=== PATIENT | female | born 1995 | race American Indian/Alaskan Native ===

== ENCOUNTER 2021-11-27 09:07 | Outpatient (CLI) | payer MEDICAID ==
[2021-11-27] MEDS ORDERED: LACTATED RINGERS 500 ML IV ONE (09:13)
[2021-11-27 09:30] VITALS: BP 130/63
[2021-11-27] MEDS ORDERED: TERBUTALINE 1 MG/1 ML INJ SUB-Q ONE ×2 (09:50→10:31)
[2021-11-27 11:01] LABS: Bilirubin,Urine NEG (Negative); Blood,Urine SM (Negative); Color,Urine Yellow (Yellow); Urobilinogen,Urine < 2.0 mg/dL (<2.0)
[2021-11-27 11:02] LABS: Mucus,Urine 3+ /HPF
[2021-11-27] MEDS ORDERED: ACETAMINOPHEN 500 MG TAB PO ONE (11:56)
[2021-11-27] MEDS ORDERED: PHENAZOPYRIDINE 200 MG TAB PO ONE (11:58)
--- NOTE | 2021-11-27 15:16 | Ultrasound Report ---
ULTRASOUND OBSTETRIC LIMITED INDICATION / CLINICAL INFORMATION: r/o abruption. - Clinical Gestational Age (GA) in weeks, days: 20, 1 TECHNIQUE: Transabdominal. COMPARISON: None available. FINDINGS: HEART RATE (beats per minute): 145 AMNIOTIC FLUID INDEX (cm) = subjectively normal. PRESENTATION: Breech. ADDITIONAL FINDINGS: Placenta is anteriorly located. No evidence of abruption. Cervix 4.4 cm. IMPRESSION: Viable intrauterine without evidence of abruption. Signer Name: Jay Veras MD Signed: 11/27/2021 3:11 PM Workstation Name: [id number]
== END 2021-11-27 15:50 | disposition home or self-care (01) ==
LOC: TRG 09:07 → APU 09:09 → TRG 15:50
PROVIDERS: ATTEND Obstetrics & Gynecology
DX: O26.892 Other specified pregnancy related conditions, second trimester (principal); R10.30 Lower abdominal pain, unspecified; O32.1XX0 Maternal care for breech presentation, not applicable or unspecified; O99.512 Diseases of the respiratory system complicating pregnancy, second trimester; J45.909 Unspecified asthma, uncomplicated; O99.352 Diseases of the nervous system complicating pregnancy, second trimester; G43.909 Migraine, unspecified, not intractable, without status migrainosus; O99.012 Anemia complicating pregnancy, second trimester; D64.9 Anemia, unspecified; Z3A.20 20 weeks gestation of pregnancy
CPT/HCPCS: 76815; 81001; 87086; 96372; J3105; J7120; 96360

== ENCOUNTER 2021-12-27 09:09 | Outpatient (CLI) | payer MEDICAID ==
[2021-12-27 09:38] VITALS: BP 117/59
[2021-12-27] MEDS ORDERED: LACTATED RINGERS 500 ML IV ONE (10:00)
[2021-12-27 10:55] LABS: Mucus,Urine FEW /HPF
[2021-12-27 11:25] LABS: Color,Urine Colorless (Yellow)
== END 2021-12-27 12:08 | disposition home or self-care (01) ==
LOC: TRG 09:09 → APU 09:10 → TRG 12:08
PROVIDERS: ATTEND Obstetrics & Gynecology
DX: O26.892 Other specified pregnancy related conditions, second trimester (principal); R10.9 Unspecified abdominal pain; Z3A.24 24 weeks gestation of pregnancy
CPT/HCPCS: 81001

== ENCOUNTER 2022-01-15 15:23 | Outpatient (CLI) | payer MEDICAID ==
[2022-01-15] MEDS ORDERED: LACTATED RINGERS 1,000 ML ONE (16:37)
[2022-01-15] MEDS: LACTATED RINGERS 1,000 ML IV SCH ×2 (16:45→20:46)
--- NOTE | 2022-01-15 17:57 | Ultrasound Report ---
ULTRASOUND OBSTETRIC LIMITED INDICATION / CLINICAL INFORMATION: Pt fell and hit belly, rule out abruption. - Clinical Gestational Age (GA) in weeks, days: Not provided TECHNIQUE: Transabdominal. COMPARISON: Ultrasound dated 11/27/21 FINDINGS: HEART RATE (beats per minute): 137 AMNIOTIC FLUID INDEX (cm) = subjectively normal (normal = 7-24 cm) PRESENTATION: Breech. ADDITIONAL FINDINGS: Anterior placenta with no sonographic evidence for placental abruption. Prominen t right-sided retroplacental/chorionic blood vessels with color Doppler flow. IMPRESSION: 1. No sonographic evidence for placental abruption or other acute abnormality. 2. Prominent retroplacental/chorionic blood vessels. Sonographic follow-up is recommended. Signer Name: Cayetano Velasquez MD Signed: 01/15/2022 5:53 PM Workstation Name: [id number]
[2022-01-15] MEDS ORDERED: ACETAMINOPHEN W/CODEINE 300-30 MG TAB PO ONE (18:25)
[2022-01-15 20:38] VITALS: BP 117/66
[2022-01-15] MEDS ORDERED: TERBUTALINE 1 MG/1 ML INJ SUB-Q ONE (20:53)
== END 2022-01-15 22:19 | disposition home or self-care (01) ==
LOC: TRG 15:23 → APU 15:25 → TRG 22:19
PROVIDERS: ATTEND Obstetrics & Gynecology
DX: O26.892 Other specified pregnancy related conditions, second trimester (principal); O99.512 Diseases of the respiratory system complicating pregnancy, second trimester; J45.909 Unspecified asthma, uncomplicated; O99.012 Anemia complicating pregnancy, second trimester; D64.9 Anemia, unspecified; Z3A.27 27 weeks gestation of pregnancy; W10.9XXA Fall (on) (from) unspecified stairs and steps, initial encounter; Y93.89 Activity, other specified; Y92.89 Other specified places as the place of occurrence of the external cause; Y99.8 Other external cause status
CPT/HCPCS: 59025; 76815; 85460; 96360; 96361; 96372; J3105; J7120; Q0177

== ENCOUNTER 2022-01-24 10:26 | Outpatient (CLI) | payer MEDICAID ==
[2022-01-24] MEDS ORDERED: LACTATED RINGERS 1,000 ML IV ONE (11:00)
[2022-01-24] MEDS ORDERED: TERBUTALINE 1 MG/1 ML INJ SUB-Q SCH (11:00)
[2022-01-24 11:18] VITALS: BP 119/67
[2022-01-24 12:26] LABS: Bacteria,Urine 3+ /HPF (Negative)
[2022-01-24 12:32] LABS: Color,Urine Straw (Yellow)
== END 2022-01-24 13:41 | disposition home or self-care (01) ==
LOC: TRG 10:26 → APU 10:27 → TRG 13:41
PROVIDERS: ATTEND Obstetrics & Gynecology
DX: O62.9 Abnormality of forces of labor, unspecified (principal); O99.513 Diseases of the respiratory system complicating pregnancy, third trimester; J45.909 Unspecified asthma, uncomplicated; O99.013 Anemia complicating pregnancy, third trimester; D64.9 Anemia, unspecified; Z3A.28 28 weeks gestation of pregnancy
CPT/HCPCS: 81001; 96360; J7120